=== PATIENT | female | born 1985 | race Caucasian/White ===

== ENCOUNTER 2017-08-25 17:09 | Emergency (ER) | payer MEDICAID ==
[~2017-08-25] VITALS: Ht 160 cm; Wt 59.1 kg
[~2017-08-25 17:09] MED LIST: PENI500T2 PO
[2017-08-25 17:12] VITALS: BP 122/74
[2017-08-25] MEDS ORDERED: dexamethasone 4mg tablet PO ONE (18:55)
[2017-08-25] MEDS ORDERED: diphenhydrAMINE 25 MG/10 ML UD oral solution PO ONE (18:55)
[2017-08-25] MEDS ORDERED: penicillin G benzathine 1.2 million unit/2ml syringe IM ONE (19:00)
== END 2017-08-25 19:37 | disposition home or self-care (01) ==
LOC: ER 17:10
DX: J02.0 Streptococcal pharyngitis (principal); G89.29 Other chronic pain; Z56.0 Unemployment, unspecified; Z79.899 Other long term (current) drug therapy
CPT/HCPCS: 87081; 87880; 96372; 99284; J0561; J8540; Q0163